=== PATIENT | male | born 1980 | race Caucasian/White ===

== ENCOUNTER 2020-12-14 14:27 | Emergency (ER) | payer BC, SELFPAY ==
[2020-12-14] VITALS (8 sets, daily range): BP systolic 118–175; BP diastolic 70–140; PULSE 71–101; RESP 11–17; TEMP 36.2; O2SAT 94–97; BMI 35.4
--- NOTE | 2020-12-14 15:03 | ED.VIS.GI ---
HPI HPI - GI History of Present Illness Chief Complaint: Foreign Body Narrative Narrative: 40-year-old male presenting with foreign body in his esophagus. He states he thinks that the piece of brronnaet. Is been there for a couple of hours. Patient has had this open to him in the past and had to have an endoscopy to remove it. Patient also states he has a history of eosinophilic esophagitis. He denies other medical problems. He is not having any trouble breathing. He states he has been having to spit his saliva into a cup since then. [facility] Medical History (Updated 12/14/20 @ 17:[address] Mike Campos, DO) Dysphagia Eosinophilic esophagitis Home Medications omeprazole 40 mg capsule,delayed release 40 mg PO BID #60 cap 12/14/20 [Rx Last Taken Unknown] Allergy/AdvReac Type Severity Reaction Status Date / Time cephalexin Allergy Hives Verified 12/14/20 14:30 Social History Smoking Status: Never smoker ROS [facility] ED Constitutional Constitutional ED: Denies chills or fever(s) ENT ENT ED: Reports other Details: Difficulty tolerating secretions ; Denies rhinorrhea or sore throat Cardiovascular Cardiovascular: Denies chest pain or palpitations Respiratory/Chest Respiratory/Chest: Denies cough or dyspnea Gastrointestinal Gastrointestinal: Denies abdominal pain, nausea or vomiting Genitourinary Genitourinary ED: Denies dysuria or hematuria Musculoskeletal Musculoskeletal: Denies arthralgias or myalgias Integumentary Denies Abrasions or rash Neurologic Neurologic: Denies headache(s) or paresthesias EXAM Physical Exam Const Vital Signs: 12/14/20 14:28 12/14/20 16:53 12/14/20 17:13 Temperature 97.1 F L Temperature Source Temporal Pulse Rate 71 75 Pulse Rate [1 (Initial Baseline)] 76 Pulse Rate [2] 100 Respiratory Rate 16 13 Respiratory Rate [1 (Initial Baseline)] 11 L Respiratory Rate [2] 13 Blood Pressure 155/108 H 131/95 H Blood Pressure [1 (Initial Baseline)] 134/96 H Blood Pressure [2] 144/101 H Blood Pressure Mean 123 107 Pulse Ox 97 97 Oxygen Delivery Method Room Air Nasal Cannula Oxygen Delivery Method [1 (Initial Baseline)] Nasal Cannula Oxygen Delivery Method [2] Room Air Oxygen Delivery Method [3] Nasal Cannula Oxygen Flow Rate (L/min) 2 Oxygen Flow Rate (L/min) [1 (Initial Baseline)] 2 Oxygen Flow Rate (L/min) [2] 2 Oxygen Flow Rate (L/min) [3] 2 12/14/20 17:21 12/14/20 17:28 Temperature Temperature Source Pulse Rate 95 101 H Pulse Rate [1 (Initial Baseline)] Pulse Rate [2] Respiratory Rate 13 16 Respiratory Rate [1 (Initial Baseline)] Respiratory Rate [2] Blood Pressure 175/140 H 118/70 Blood Pressure [1 (Initial Baseline)] Blood Pressure [2] Blood Pressure Mean Pulse Ox 94 95 Oxygen Delivery Method Room Air Room Air Oxygen Delivery Method [1 (Initial Baseline)] Oxygen Delivery Method [2] Oxygen Delivery Method [3] Oxygen Flow Rate (L/min) Oxygen Flow Rate (L/min) [1 (Initial Baseline)] Oxygen Flow Rate (L/min) [2] Oxygen Flow Rate (L/min) [3] Positive well nourished General Appearance ED: NAD; Negative for pallor HEENT Reports moist mucous membranes normocephalic and atraumatic Eyes PERRL and EOMs intact bilaterally Resp normal respiratory effort and clear to auscultation bilaterally Cardio regular rate and regular rhythm GI non-tender Palpation: soft Extremity full ROM Neuro Sensorium / Orientation: alert, oriented to person, oriented to place and oriented to time Psych mental status grossly normal and thought process normal Skin General Skin Exam: Negative for pallor Rashes: No rashes noted MDM MDM MDM Narrative Medical decision making narrative: Patient was given glucagon without success. He was still not tolerating his own secretions. I spoke with Dr. Campos regarding this. He will come in for upper endoscopy. Patient was consented for conscious sedation with propofol by myself. Dr. Campos did consent him for the endoscopy. Prior to the procedure a timeout was called. Propofol was used for the conscious sedation totaling [address] Campos did perform endoscopy and at this point the food bolus had passed. Afterwards the patient did vomit which appeared to be due to gagging secondary to the scope. He was sent forward. He came out of sedation and stated he felt fine. His vital signs have been normal since then. He has been monitored. Dr. Campos him a prescription for PPI for home. He will follow up with Dr. Campos outpatient. Patient discharged home in stable condition. Impression: 1. Esophageal foreign body resolved Discharge Plan Triage Chief Complaint: Foreign Body ED Provider: Cesar Hylton Dx/Rx/DC Orders Instructions: ED Esophageal Foreign Body, Resolved Prescriptions: No Action omeprazole 40 mg capsule,delayed release(DR/EC) 40 mg PO BID Qty: 60 RF: 2 Primary Care Provider: Care Physician,No Primary Referrals: Mike Campos DO [STAFF PHYSICIAN] - 3-5 Days Care Physician,No Primary [Primary Care Provider] - Disposition Disposition: Home, Self Care
[2020-12-14] MEDS: Glucagon 1 MG/ML Syringe IV (15:29)
--- NOTE | 2020-12-14 16:59 | EX.PCM.CON.G ---
HPI Consult Data Date of Consult: 12/14/20 HPI Narrative HPI Narrative: ELISABET FLORES, is a 40 M who presents after getting brisket stuck in his throat. He has a history of eosinophilic esophagitis. He denies any history of gastroesophageal reflux disease. He does not take any medicines on daily basis. He is not having any chest pain or shortness of breath. He had 2 other times when he had food stuck in his throat. One was in [place] and the other one was in [place] where they had they are going to remove the food. He is not on any medicines for eosinophilic esophagitis. [facility] Medical History (Updated 12/14/20 @ 17:[address] Mckeon Friend, DO) Dysphagia Eosinophilic esophagitis Allergy/AdvReac Type Severity Reaction Status Date / Time cephalexin Allergy Hives Verified 12/14/20 14:30 Social History Smoking Status: Never smoker ROS Review of Systems ROS Unobtainable: other Constitutional Constitutional: Denies fatigue, fever(s), poor appetite, weight gain or weight loss ENT HEENT: Denies mouth lesions Cardiovascular Cardiovascular: Denies abdominal bloating, abdominal edema or abdominal pain Respiratory/Chest Respiratory/Chest: Denies change in mental status, change in phlegm color, chest congestion or chest tightness Gastrointestinal Gastrointestinal: Reports dysphagia and other; Denies belching, bloating, change in bowel habits, change in stool character, chewing difficulty, coffee ground emesis, constipation, cramping, diarrhea, dyspepsia, early satiety, excessive flatus, fecal incontinence, heartburn, hematemesis, hematochezia, hemorrhoids, loose stools, melena, nausea, odynophagia, rectal bleeding, tenesmus, vomiting or weight changes Genitourinary Genitourinary: Denies abdominal discomfort, burning urination or itching Musculoskeletal Musculoskeletal: Reports as per HPI; Denies muscle weakness or myalgias Integumentary Integumentary: Denies jaundice Neurologic Neurologic: Denies lack of coordination or weakness Psychiatric Psychiatric: Denies confusion, depression, memory loss, mood swings, paranoia or suicidal ideation Endocrine Endocrinology: Denies systems reviewed and no addt'l complaints, except as documented Hematologic/Lymphatic Hematologic/Lymphatic: Denies anemia, easy bleeding, easy bruising or lymphadenopathy Allergic/Immunologic Allergic/Immunologic: Denies systems reviewed and no addt'l complaints, except as documented Physical Exam Const alert General Appearance: cooperative Orientation / Consciousness: oriented to person HEENT hearing grossly normal bilaterally Head and Scalp: normal to inspection Face and Sinus: face symmetric Nose: external nose normal Mouth: oral and palatal mucosa normal Eyes conjunctivae normal General Eye: normal appearance of both eyes Neck full ROM General: normal visual inspection Lymph Lymphatic: no lymphadenopathy noted Chest inspection of chest normal and palpation of chest normal Chest: symmetrical chest wall rise Resp normal respiratory effort Effort and Inspection: able to speak in complete sentences Cardio regular rate GI non-distended Percussion: normal to percussion Rectal Exam: deferred Neuro Speech: speech normal Gait (Neuro): normal gait Assessment & Plan Assessment/Plan (1) Dysphagia: PLAN: Esophageal dysphagia secondary to foreign body . he will undergo upper endoscopy. He was explained alternatives, risk, benefits including not withstanding bleeding, infection, sepsis, perforation, need for emergency or . He will have an ASA of 1.. (2) Eosinophilic esophagitis: PLAN: I will place him on twice a day PPI therapy and budesonide on a daily basis for the next 8 weeks. He may need empiric dilation in the future. We will assess him during the procedure and in 8 weeks. Charges/Coding Visit Charges Inpatient E&M: 64735 Init Hosp L2
[2020-12-14] MEDS: Propofol 200 MG/20 ML Vial IV BOLUS (17:13)
--- NOTE | 2020-12-14 17:33 | OP.CCLET_ITS ---
11/01/2021 No Primary Care Physician Re : Upper GI endoscopy procedure for Dragan Anne Dear Care Physician This procedure was performed on December. My impressions and recommendations are as follows: Impressions : - Esophageal mucosal changes secondary to eosinophilic esophagitis. - Normal stomach. - Normal second portion of the duodenum. - No specimens collected. Recommendations : - Discharge patient to home. - Clear liquid diet today. - Continue present medications. - Use Prilosec (omeprazole) 40 mg PO BID for 8 months. My findings are described in the full procedure note, which is enclosed. If I can be of further assistance, please feel free to contact me at . Sincerely, Mike Campos, 12/14/2020 5:32:59 PM This report has been signed electronically.
--- NOTE | 2020-12-14 17:33 | OP.EGD_ITS ---
Patient Name: Dragan Anne Procedure Date: 12/14/2020 5:02 PM Date of : 1980 Age: 40 Procedure: Upper GI endoscopy Indications: Dysphagia Providers: Mike Campos DO Medicines: Monitored Anesthesia Care Patient Profile: This is a 40 year old male. Refer to note in patient chart for documentation of history and physical. Patient has symptoms of acute dysphagia. The symptoms first began 01,. He is status post EGD for foreign body removal within the past three years. Complications: No immediate complications. Procedure: Pre-Anesthesia Assessment: - Prior to the procedure, a History and Physical was performed, and patient medications and allergies were reviewed. The patient is competent. The risks and benefits of the procedure and the sedation options and risks were discussed with the patient. All questions were answered and informed consent was obtained. Patient identification and proposed procedure were verified by the physician in the pre-procedure area. Mental Status Examination: alert and oriented. Airway Examination: normal oropharyngeal airway and neck mobility. Respiratory Examination: clear to auscultation. CV Examination: normal. Prophylactic Antibiotics: The patient does not require prophylactic antibiotics. Prior Anticoagulants: The patient has taken no previous anticoagulant or antiplatelet agents. ASA Grade Assessment: II - A patient with mild systemic disease. After reviewing the risks and benefits, the patient was deemed in satisfactory condition to undergo the procedure. The anesthesia plan was to use moderate sedation / analgesia (conscious sedation). Immediately prior to administration of medications, the patient was re-assessed for adequacy to receive sedatives. The heart rate, respiratory rate, oxygen saturations, blood pressure, adequacy of pulmonary ventilation, and response to care were monitored throughout the procedure. The physical status of the patient was re-assessed after the procedure. After obtaining informed consent, the endoscope was passed under direct vision. Throughout the procedure, the patient's blood pressure, pulse, and oxygen saturations were monitored continuously. The Endoscope was introduced through the mouth, and advanced to the second part of duodenum. The upper GI endoscopy was accomplished without difficulty. The patient tolerated the procedure well. Moderate Sedation: Moderate (conscious) sedation was administered by the endoscopy nurse and supervised by the endoscopist. The patient's oxygen saturation, heart rate, blood pressure and response to care were monitored. Total physician intraservice time was 15 minutes. Scope In: 5:17:29 PM Scope Out: 5:20:23 PM Total Procedure Duration Time 0 hours 2 minutes 54 seconds Findings: Mucosal changes including ringed esophagus, feline appearance, longitudinal furrows, small-caliber esophagus, circumferential folds and congestion (edema) were found in the entire esophagus. Esophageal findings were graded using the Eosinophilic Esophagitis Endoscopic Reference Score (EoE-EREFS) as: Rings Grade 2 Moderate (distinct rings that do not occlude passage of diagnostic 8-10 mm endoscope), Exudates Grade 1 Mild (scattered white lesions involving less than 10 percent of the esophageal surface area), Furrows Grade 1 Present (vertical lines with or without visible depth) and Stricture none (no stricture found). The entire examined stomach was normal. The second portion of the duodenum was normal. Impression: - Esophageal mucosal changes secondary to eosinophilic esophagitis. - Normal stomach. - Normal second portion of the duodenum. - No specimens collected. Recommendation: - Discharge patient to home. - Clear liquid diet today. - Continue present medications. - Use Prilosec (omeprazole) 40 mg PO BID for 8 months. Procedure Code(s): --- Professional --- 99846, Esophagogastroduodenoscopy, flexible, transoral; diagnostic, including collection of specimen(s) by brushing or washing, when performed (separate procedure) G0500, Moderate sedation services provided by the same physician or other qualified health managed care nurse performing a gastrointestinal endoscopic service that sedation supports, requiring the presence of an independent trained observer to assist in the monitoring of the patient's level of consciousness and physiological status; initial 15 minutes of intra-service time; patient age 5 years or older (additional time may be reported with 05509, as appropriate) CPT copyright 2017 [employer]. All rights reserved. The codes documented in this report are preliminary and upon orthopedic coder review may be revised to meet current compliance requirements. Mike Campos DO 12/14/2020 5:32:59 PM This report has been signed electronically. Number of Addenda: 1 Note Initiated On: 12/14/2020 5:02 PM Addendum Number: 1 Addendum Date: 11/01/2021 4:33:19 PM MAC was used instead of moderate sedation for this patient. Mike Campos DO 11/01/2021 4:33:23 PM This report has been signed electronically.
== END 2020-12-14 18:54 | disposition home or self-care (01) ==
PROVIDERS: Emergency Provider Student in an Organized Health Care Education/Training Program; Referring Provider Internal Medicine Gastroenterology
PROC: 0DJ08ZZ Inspection of Upper Intestinal Tract, Via Natural or Artificial Opening Endoscopic (ICD-10-PCS; CPT 43235; principal; 2020-12-14 14:00)
DX: T18.128A Food in esophagus causing other injury, initial encounter (principal); X58.XXXA Exposure to other specified factors, initial encounter; Y93.9 Activity, unspecified; Y92.9 Unspecified place or not applicable; K20.0 Eosinophilic esophagitis
CPT/HCPCS: 43235; 96361; 96374; 99284; J7030; A4216; J1610

== ENCOUNTER 2021-01-03 08:27 | Day surgery (SDC) | payer BC, SELFPAY ==
[2021-01-03] VITALS (7 sets, daily range): BP systolic 113–131; BP diastolic 79–93; PULSE 71–84; RESP 16; TEMP 35.8–36.8; O2SAT 95–100; BMI 36.1
--- NOTE | 2021-01-03 | IMM_PTH ---
PATIENT: ELISABET FLORES LOC: EN U#:[id number] AGE/SX: 40/M ROOM: RE01/03/[address]: Dr. Mike Campos DO : 1980 BED: DIS: 01/03/2021 SPEC #: [id number] RECD: 01/04/21 15:06 STATUS: [facility] #: [id number] ABIGAIL: 01/03/21 00:[address]: Mike Campos DEPT: IMMUNOHISTOCHEMISTRY RECD BY: Meena Portillo ENTERED: 01/04/21 15:06 SP TYPE: IMMUNO OTHR DR: Kyra Primary Care Phys Tissues: Esophagus, NOS Procedures: P53 (initial) KI-67 (add) PHYSICIAN & INSTITUTION [place] [id number] SPECIMEN INFORMATION: Tissue Source: Esophageal biopsy Clinical Info: Eosinophilic esophagitis Specimen Number: [id number] CPT code: 20440, 33445 METHODOLOGY: Deparaffinized sections of prefer/formalin-fixed tissue or PAP/DQ stained slides are incubated with monoclonal/polyclonal antibodies/oligonucleotide probes. Localization is made via biotin free immunoperoxidase method. Appropriate controls are performed and reacted as expected. Results on target cell population are indicated in the following table: RESULTS: ANTIBODY / CLONE RESULT P53 (DO-7) negative Ki-67 (30-9) positive, low These tests were developed and their performance characteristics determined by [facility]. They may not have been cleared or approved by the U.S. Food and Drug Administration. The FDA has determined that such clearance or approval is not necessary. The above immunohistochemical/dualISH markers are ordered and reviewed by the Pathologist. INTERPRETATION: Esophagus, random biopsy: Goblet cell metaplasia. No evidence of dysplasia. AM:anand 01/05/2021
[2021-01-03] MEDS: Lactated Ringers 1,000 ML 100 ML IV (09:14)
--- NOTE | 2021-01-03 09:30 | EGD_PTH ---
PATIENT: ELISABET FLORES LOC: EN U#:[id number] AGE/SX: 40/M ROOM: RE01/03/[address]: Dr. Mike Campos DO : 1980 BED: DIS: 01/03/2021 SPEC #: [id number] RECD: 01/03/21 12:06 STATUS: [facility] #: [id number] ABIGAIL: 01/03/21 09:[address]: Mike Campos DEPT: SURGICAL PATHOLOGY RECD BY: Krissy Matson ENTERED: 01/03/21 13:40 SP TYPE: EGD BIOPSY OT DR: Kyra Primary Care Phys Tissues: Esophagus, NOS Procedures: Special Stain Group II Surgery Specimen Level IV Alcian Blue/PAS (control) HEADER OPERATION: EGD ([place]) PRE-OP DIAGNOSIS: Eosinophilic esophagitis TISSUE SUBMITTED: Random esophageal biopsies MICROSCOPIC DIAGNOSIS Esophagus, random biopsy: Eosinophilic esophagitis. Gastroesophageal junctional mucosa with mild chronic inflammation. 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 No evidence of dysplasia. AM:anand 01/04/2021 COMMENT Alcian blue/PAS stain with matched control supports the above diagnosis. Immunohistochemistry ([id number]) for P53 and Ki-67 will be performed and results will be reported separately. MICROSCOPIC DESCRIPTION Slides are reviewed. GROSS DESCRIPTION Received in fixative is one container labeled with the patient's name and designated random esophageal biopsy. The specimen consists of multiple irregular fragments of light boggs soft tissue that in aggregate measure 0.8 x 0.5 x 0.1 cm. The specimen is totally submitted in one cassette. / SJ:anand 01/03/21 TC:5 CPT: 26993, 77155
--- NOTE | 2021-01-03 09:48 | HP.PCM_ITS ---
History and Physical Date of Admission: 01/03/21 HPI HPI Details: ELISABET FLORES, is a 40 M who presents after getting brisket stuck in his throat. He has a history of eosinophilic esophagitis. He denies any history of gastroesophageal reflux disease. He does not take any medicines on daily basis. He is not having any chest pain or shortness of breath. He had 2 other times when he had food stuck in his throat. One was in [place] and the other one was in [place] where they had they are going to remove the food. He is not on any medicines for eosinophilic esophagitis. Patient seen in [facility] ED 12/14/20 when a piece of brisket became lodged in his throat. History of eosinophilic esophagitis. EGD performed for removal of fore ign object. Started on omeprazole 40mg BID for eosinophilic esophagitis. Allergy testing of a full panel performed fall and he was allergic to most things. He has had difficulty with dysphagia in the past and one episode of hives. Omperazole continued and is working well. Previously treated with omeprazole and budesonide compound gel. ROS ENT ENT: Positive for difficulty swallowing Gastro GI: Positive for difficulty swallowing Exam Const General: cooperative and comfortable Nutritional Appearance: average body habitus and well nourished [facility] Head: normal to inspection Ears: hearing grossly normal bilaterally Nose: external nose normal Face and sinus: normal facial exam Mouth: oral mucosae normal Throat: posterior oropharynx normal Eyes General: appearance normal, both eyes and all related structures Neck Neck: normal visual inspection Chest Chest palpation & inspection: normal inspection of the chest and normal palpation of entire chest wall Resp Effort & Inspection: normal respiratory effort Auscultation: Bilateral: Clear to Auscultation Cardio Palpation: normal PMI Rate: regular rate Rhythm: regular rhythm GI Inspection: normal to inspection Auscultation: normal bowel sounds Percussion: normal to percussion Palpation: no hepatosplenomegaly Skin General: no rashes or lesions noted Neuro General: patient alert Extrem General: normal to inspection Psych Affect: normal affect Quality Reporting Tobacco Screening ([facility] 138) Smoking Status: Never smoker Assessment and Plan Assessment and Plan (1) Eosinophilic esophagitis: Status: Acute Plan - Dr. Mckeon Friend, DO: We will perform upper endoscopy. I will also put him on PPI twice daily possibly a compound budesonide solution This is an updated H&P from the patient was seen in office.
--- NOTE | 2021-01-03 10:22 | OP.CCLET_ITS ---
11/02/2021 No Primary Care Physician Re : Upper GI endoscopy procedure for Dragan Anne Dear Care Physician This procedure was performed on Sunday, January 03, 2021. My impressions and recommendations are as follows: Impressions : - Esophageal mucosal changes secondary to eosinophilic esophagitis. Biopsied. Dilated. - Normal stomach. - Normal second portion of the duodenum. Recommendations : - Discharge patient to home. - Resume previous diet. - Return to my office in 2 weeks. - Continue present medications. My findings are described in the full procedure note, which is enclosed. If I can be of further assistance, please feel free to contact me at . Sincerely, Mike Campos, 01/03/2021 10:21:44 AM This report has been signed electronically.
--- NOTE | 2021-01-03 10:22 | OP.EGD_ITS ---
Patient Name: Dragan Anne Procedure Date: 01/03/2021 9:49 AM Date of : 1980 Age: 40 Procedure: Upper GI endoscopy Indications: Foreign body in the esophagus Providers: Mike Campos DO Medicines: See the Anesthesia note for documentation of the administered medications Patient Profile: This is a 40 year old male. Refer to note in patient chart for documentation of history and physical. Patient has symptoms of dysphagia with both liquids and solids. He is status post EGD for foreign body removal within the past three months. Complications: No immediate complications. Procedure: Pre-Anesthesia Assessment: - Prior to the procedure, a History and Physical was performed, and patient medications and allergies were reviewed. The patient is competent. The risks and benefits of the procedure and the sedation options and risks were discussed with the patient. All questions were answered and informed consent was obtained. Patient identification and proposed procedure were verified by the physician in the pre-procedure area. Mental Status Examination: alert and oriented. Airway Examination: normal oropharyngeal airway and neck mobility. Respiratory Examination: clear to auscultation. CV Examination: normal. Prophylactic Antibiotics: The patient does not require prophylactic antibiotics. Prior Anticoagulants: The patient has taken no previous anticoagulant or antiplatelet agents. ASA Grade Assessment: II - A patient with mild systemic disease. After reviewing the risks and benefits, the patient was deemed in satisfactory condition to undergo the procedure. The anesthesia plan was to use moderate sedation / analgesia (conscious sedation). Immediately prior to administration of medications, the patient was re-assessed for adequacy to receive sedatives. The heart rate, respiratory rate, oxygen saturations, blood pressure, adequacy of pulmonary ventilation, and response to care were monitored throughout the procedure. The physical status of the patient was re-assessed after the procedure. After obtaining informed consent, the endoscope was passed under direct vision. Throughout the procedure, the patient's blood pressure, pulse, and oxygen saturations were monitored continuously. The Endoscope was introduced through the mouth, and advanced to the second part of duodenum. The upper GI endoscopy was accomplished without difficulty. The patient tolerated the procedure well. Moderate Sedation: Moderate (conscious) sedation was administered by the endoscopy nurse and supervised by the endoscopist. The patient's oxygen saturation, heart rate, blood pressure and response to care were monitored. Total physician intraservice time was 15 minutes. Moderate (conscious) sedation was administered by the endoscopy nurse and supervised by the endoscopist. The patient's oxygen saturation, heart rate, blood pressure and response to care were monitored. Total physician intraservice time was 15 minutes. Scope In: 10:00:12 AM Scope Out: 10:06:23 AM Total Procedure Duration Time 0 hours 6 minutes 11 seconds Findings: Mucosal changes including ringed esophagus, feline appearance, longitudinal furrows, small-caliber esophagus, white plaques, circumferential folds, congestion (edema), esophageal erosions, mucosal friability and stenosis were found in the entire esophagus. Esophageal findings were graded using the Eosinophilic Esophagitis Endoscopic Reference Score (EoE-EREFS) as: Edema Grade 1 Present (decreased clarity or absence of vascular markings), Rings Grade 2 Moderate (distinct rings that do not occlude passage of diagnostic 8-10 mm endoscope), Exudates Grade 2 Severe (scattered white lesions involving 10 percent or greater of the esophageal surface area), Furrows Grade 1 Present (vertical lines with or without visible depth) and Stricture present. Biopsies were taken with a cold forceps for histology. Verification of patient identification for the specimen was done. A guidewire was placed and the scope was withdrawn. Dilation was performed with a Savary dilator with no resistance at 51 Fr. A guidewire was placed and the scope was withdrawn. Dilation was performed with a Savary dilator with no resistance at 60 Fr. The entire examined stomach was normal. The second portion of the duodenum was normal. Impression: - Esophageal mucosal changes secondary to eosinophilic esophagitis. Biopsied. Dilated. - Normal stomach. - Normal second portion of the duodenum. Recommendation: - Discharge patient to home. - Resume previous diet. - Return to my office in 2 weeks. - Continue present medications. Procedure Code(s): --- Professional --- 76186, Esophagogastroduodenoscopy, flexible, transoral; with insertion of guide wire followed by passage of dilator(s) through esophagus over guide wire 04172, 59, Esophagogastroduodenoscopy, flexible, transoral; with biopsy, single or multiple G0500, Moderate sedation services provided by the same physician or other qualified health career technical supervisor performing a gastrointestinal endoscopic service that sedation supports, requiring the presence of an independent trained observer to assist in the monitoring of the patient's level of consciousness and physiological status; initial 15 minutes of intra-service time; patient age 5 years or older (additional time may be reported with 09227, as appropriate) Diagnosis Code(s): --- Professional --- K20.0, Eosinophilic esophagitis T18.108A, Unspecified foreign body in esophagus causing other injury, initial encounter CPT copyright 2017 [employer]. All rights reserved. The codes documented in this report are preliminary and upon telemarketer supervisor review may be revised to meet current compliance requirements. Mike Campos DO 01/03/2021 10:21:44 AM This report has been signed electronically. Number of Addenda: 1 Note Initiated On: 01/03/2021 9:49 AM Addendum Number: 1 Addendum Date: 11/02/2021 6:09:51 AM MAC was used instead of moderate sedation for this patient. Mike Campos DO 11/02/2021 6:09:55 AM This report has been signed electronically.
== END 2021-01-03 11:11 | disposition home or self-care (01) ==
LOC: EN 08:28 → AC 08:30
PROVIDERS: Visit Provider Internal Medicine Gastroenterology
PROC: 0DJ08ZZ Inspection of Upper Intestinal Tract, Via Natural or Artificial Opening Endoscopic (ICD-10-PCS; CPT 43235; principal; 2021-01-03 09:25)
DX: K20.0 Eosinophilic esophagitis (principal); K22.70 Barrett's esophagus without dysplasia; T18.108A Unspecified foreign body in esophagus causing other injury, initial encounter; K22.2 Esophageal obstruction
CPT/HCPCS: 43239; 43248; 88305; 88313; 88341; 88342; J7120; C1769; J2405

== ENCOUNTER 2024-10-12 14:54 | Emergency (ER) | payer BC, SELFPAY ==
[2024-10-12 14:54] VITALS: BP 123/91; PULSE 77; RESP 18; TEMP 36.9; O2SAT 99; BMI 27.0
--- NOTE | 2024-10-12 15:03 | EKG12_ITS ---
Test Reason : PALPS Blood Pressure : */* mmHG Vent. Rate : 117 BPM Atrial Rate : * BPM P-R Int : * ms QRS Dur : 100 ms QT Int : 324 ms P-R-T Axes : * 46 9 degrees QTcB Int : 451 ms Atrial fibrillation with rapid ventricular response Cannot rule out Septal infarct , age undetermined Abnormal ECG Confirmed by Neo Ferris ([id number]), department editor NIECY DIETZ ([id number]) on 10/13/2024 9:39:54 AM Referred By: Confirmed By: Neo Ferris
[2024-10-12 15:25] VITALS: BP 128/71; PULSE 116
--- NOTE | 2024-10-12 15:27 | ED.VIS.CHEST ---
HPI History of Present Illness Chief Complaint: Palpitations Onset/Context/Timing Onset: Today Current Severity: Mild Maximum Severity: Mild Worsened By: Nothing Relieved By: Nothing Narrative Narrative: 44-year-old male no Cee[facility] past medical history of a prior appendectomy. He says he believes he is in A-fib I asked him how he knows he said apple told me. Patient states that his Apple Watch told him he was in A-fib he came in to have it evaluated. He denies any chest pain or significant shortness of breath. He has no cardiac history. When he went through his Apple watch he saw that it showed that he has been in A-fib intermittently for the last several days if not longer. Prior Similar Symptoms: Yes Recent Illness/Hospitalization: No CVD Risk Factors: Negative for Hypertension, Diabetes, Hypercholesterolemia or Family History 1' </=55 PE Risk Factors: Negative for Recent Travel/Surgery, Recent Immobilization, Prior DVT or PE, Cancer or OCP + Smoking + >/=35 TAD Risk Factors: Negative for Marfan's Syndrome or Hypertension [facility] Medical History Barretts esophagus Wears contact lenses History of Clostridium difficile infection Alcohol use Former smoker Seasonal allergies Dysphagia Eosinophilic esophagitis Home Medications ?Medication ?Instructions ?Recorded ?Last Taken ?Type apixaban 5 mg (74 tabs) tablets in See Rx Instructions .Route 10/12/24 Unknown Rx a dose pack (Eliquis DVT-PE Treat .COMPLEX #74 tabs 30D Start) diltiazem HCl 180 mg 180 mg PO DAILY 30 days #30 tabs 10/12/24 Unknown Rx tablet,extended release 24 hr (Cardizem LA) testosterone cypionate 200 mg/mL 60 mg IM .weekly 10/12/24 Unknown History intramuscular syringe Allergy/AdvReac Type Severity Reaction Status Date / Time cephalexin Allergy Hives Verified 10/12/24 14:57 Family History no significant family his Surgical History History of esophagogastroduodenoscopy (EGD) History of abdominal surgery Social History Smoking Status: Former smoker ROS ROS ED ROS Narrative Denies any recent chest pain or exertional dyspnea or exertional chest pain. Constitutional Constitutional ED: Denies chills or fever(s) Eyes Eyes: Reports none ENT ENT ED: Denies ear pain Cardiovascular Cardiovascular: Reports palpitations; Denies chest pain Respiratory/Chest Respiratory/Chest: Denies cough or dyspnea Gastrointestinal Gastrointestinal: Denies abdominal pain Genitourinary Genitourinary ED: Denies dysuria or hematuria Musculoskeletal Musculoskeletal: Denies arthralgias Integumentary Denies abscess Neurologic Neurologic: Denies headache(s) Psychiatric Psychiatric: Denies anxiety Endocrine Endocrinology: Denies cold intolerance Hematologic/Lymphatic Hematologic/Lymphatic: Denies easy bleeding, easy bruising or lymphadenopathy EXAM Physical Exam Narrative Exam Narrative: Well-appearing middle-age male. Vital signs are stable afebrile initial triage pulse is 77. Currently is around 110. None noted. Pulse ox 99% on room air no hypoxia. H EENT exam pupils round react light. Moist with membranes. Neck nontender no JVD. No lymphadenopathy. No thyromegaly. Lungs clear to auscultation bilaterally. Heart irregular irregular rate about 110 no murmur. Chest wall ribs nontender. Abdomen soft nontender. Moving all 4 extremities. Calves nontender no edema no cords. Moving all 4 extremities. Patient is in very good shape. Neurologically is awake alert. Back nontender. Const Vital Signs: 10/12/24 14:54 10/12/24 15:25 10/12/24 15:42 Temperature 98.5 F Temperature Source Oral Pulse Rate 77 116 H Respiratory Rate 18 Respiratory Effort Blood Pressure 123/91 H 128/71 H Blood Pressure Mean 101 90 Pulse Ox 99 Oxygen Delivery Method Room Air Room Air 10/12/24 15:45 10/12/24 15:55 10/12/24 16:42 Temperature Temperature Source Pulse Rate 74 81 Respiratory Rate 21 H Respiratory Effort Normal Non-Labored Blood Pressure 127/79 H 120/75 Blood Pressure Mean 95 90 Pulse Ox 97 Oxygen Delivery Method Room Air 10/12/24 17:00 Temperature Temperature Source Pulse Rate 102 H Respiratory Rate Respiratory Effort Blood Pressure 120/82 H Blood Pressure Mean 94 Pulse Ox Oxygen Delivery Method Positive well nourished and well developed; Negative for cachectic, contractures or unkempt General Appearance ED: well developed and NAD; Negative for unkempt, cachectic, contractures or pallor Nutritional Appearance: Negative for cachectic HEENT Reports moist mucous membranes normocephalic and atraumatic; Negative for trauma Eyes PERRL and EOMs intact bilaterally General Eye ED: Negative for pale conjunctiva or scleral icterus Neck no lymphadenopathy, supple and no JVD General: Negative for tenderness Chest Wall inspection of chest normal and palpation of chest normal Chest: Negative for tenderness Resp normal respiratory effort and clear to auscultation bilaterally Effort and Inspection: Negative for respiratory distress Auscultation: Negative for rales, rhonchi, wheezes or diminished lung sounds Cardio S1 normal heart sound, S2 normal heart sound and no murmurs; Negative for regular rate or regular rhythm Rhythm: abnormal rhythm irregularly irregular Peripheral Pulses: pulses 2+ throughout GI normal to inspection, nondistended, normoactive bowel sounds, soft to palpation, non-tender, non-distended and no masses Back/Spine no CVA tenderness and no thoracic nor lumbar tenderness Extremity normal to inspection General Extremety ED: Negative for edema, pulses abnormal or tenderness General Extremity: Negative for edema or pulses abnormal Neuro oriented x3 and CN's II-XII intact bilaterally Sensorium / Orientation: awake, alert, oriented to person, oriented to place and oriented to time Motor Exam: strength 5/5 throughout Psych mental status grossly normal Appearance: Negative for unkempt Skin no rashes or lesions noted and no wounds General Skin Exam: Negative for jaundice or pallor Rashes: No rashes noted Trauma: Negative for abrasion MDM MDM MDM Narrative Medical decision making narrative: 44-year-old male new onset A-fib with a significant past medical history. Cardiac workup will be treated with IV Cardizem due to his heart rate in the 117 rate. Repeat exam patient is doing well around 5:18 PM. Heart rates 90-100. Dr. Neo Ferris of cardiology is down the emergency department evaluate the patient. The plan to be to discharge him home. Outpatient follow-up. Started on Cardizem CD 180 mg a day. The blood thinner Eliquis and then if he does not spontaneously convert Dr. Ferris strongly considering cardioversion and outpatient follow-up. Patient is comfortable with the plan. History & Record Review Discussion w/independent historian: Patient Additional record(s) reviewed:: Prior inpatient record, Prior outpatient record, Prior ED visit and Prior labs Lab Data Attestation: I reviewed the patient's lab results. Lab results narrative: CBC unremarkable. White count of 10. H&H is 17 and 50. Platelets 275. Electrolytes shows sodium 138. Gap 13. BUN and creatinine of 24 and 0.9. Glucose 101. Troponin less than 6. TSH 2.1. Chest x-ray unremarkable. Labs: Laboratory Results - last 24 hr 10/12/24 15:33 WBC 10.0 RBC 5.50 Hgb 17.5 H Hct 50.9 MCV 92.5 MCH 31.8 MCHC 34.4 RDW Std Deviation 42.8 RDW Coeff of [place] 12.4 Plt Count 275 MPV 9.3 Immature Gran % (Auto) 0.300 Neut % (Auto) 61.4 Lymph % (Auto) 21.7 Buchanan % (Auto) 10.6 H Eos % (Auto) 5.3 H Baso % (Auto) 0.7 Absolute Neuts (auto) 6.1 Absolute Lymphs (auto) 2.16 Nucleated RBC % 0 Sodium 138 Potassium 3.8 Chloride 103 Carbon Dioxide 21.4 Anion Gap 13 BUN 24 H Creatinine 0.90 Estim Creat Clear Calc 104.74 Est GFR (MDRD) Non-Af 108 BUN/Creatinine Ratio 26.4 H Glucose 101 H Calcium 9.0 Troponin T High Sens < 6 TSH 2.130 Radiography Chest X-Ray - ED: 1 View, Read by ED Physician, Read by Radiologist, Normal, Heart, Lungs, Mediastinum, Bony Structures, No Acute Disease and Chronic Changes Diagnostic Testing: Clinical Impression(s) from Imaging Studies Chest X-Ray 10/12/24 15:45 IMPRESSION: No evidence of acute cardiopulmonary pathology. Reading Location: [place] [id number] Chest x-ray, portable, single view interpreted by myself shows no acute abnormality. Normal cardiac silhouette. No mediastinum. Normal lung north. Also read by the radiologist and agrees. Rhythm Strip Rhythm Strip: A-fib Rate: 117 Ectopy: None EKG Initial EKG: Attestation: I personally reviewed and interpreted this EKG as follows: Interpretation: No Acute Injury Pattern and Atrial Fibrillation Comments: A-fib rate 117 no acute signs of [place] or ischemia Discharge Plan Triage Chief Complaint: Palpitations ED Provider: Addy Dwyer Dx/Rx/DC Orders Clinical Impression: New onset atrial fibrillation Instructions: ED AFIB Prescriptions: New diltiazem HCl [Cardizem LA] 180 mg tablet extended release 24 hr 180 mg PO DAILY 30 Days Qty: 30 0RF Eliquis DVT-PE Treat 30D Start 5 mg (74 tabs) tablets,dose pack See Rx Instructions .Route .COMPLEX Qty: 74 0RF Rx Instructions: orally per package directions No Action testosterone cypionate 200 mg/mL syringe 60 mg IM .weekly Patient Comments: take twice a week Primary Care Provider: Care Physician,No Primary Referrals: Neo Ferris MD [Med Staff - Active Staff] - As soon as possible (Call the office tomorrow morning get appointment to be seen soon as possible.) Care Physician,No Primary [Primary Care Provider] - Activity Restrictions/Additional Instructions: You have A-fib which is an irregular heartbeat. I discussed with the ring stamper Dr. Neo Ferris who came down in the emergency department to see you. Call his office tomorrow morning to be seen as soon as possible. Start the blood thinner Eliquis. You will be on that to thin out your blood and then they will most likely cardiovert you or convert you to a regular heart rate unless you convert on your own. Start the medication Cardizem 1 pill a day to control your heart rate. Return to the emergency department for any problems. Since you are being started on a blood thinner medication if you would hit your head of any significance you need to return to be evaluated. Be careful not to cut yourself because obviously you will bleed due to the blood thinning medication. Print Language: Tongan Disposition Disposition: Home, Self Care
--- NOTE | 2024-10-12 15:45 | RAD_ITS ---
PROCEDURE: CHEST 1 VIEW (PORTABLE) 10/12/2024 REASON FOR EXAM: CHEST PAIN TECHNIQUE: Frontal view of the chest. COMPARISON: None. FINDINGS: The cardiac and mediastinal contours are normal. The lungs are clear. RAD/Chest 1 View (Portable) IMPRESSION: No evidence of acute cardiopulmonary pathology. Reading Location: [place] [id number]
[2024-10-12 15:46] LABS: Hematocrit 50.9 % (40-54); Hemoglobin 17.5 g/dL (13.0-16.5); Immature Granulocytes Count 0.030 X10^3/uL (0.0-0.0); Mean Corp Hgb Conc 34.4 g/dL (32-36); Mean Corpuscular Volume 92.5 fL (80-94); Mean Platelet Vol. 9.3 fl (6.2-12.0); NRBC Flagged by Analyzer 0 % (0-5); Platelet Count 275 K/mm3 (150-450); RBC Distribution Width CV 12.4 % (11.6-14.6); RBC Distribution Width SD 42.8 fl (35.1-43.9); Red Blood Count 5.50 M/mm3 (4.6-6.2); White Blood Count 10.0 K/mm3 (4.4-11.0)
[2024-10-12 15:55] VITALS: BP 127/79; PULSE 74
[2024-10-12 16:17] LABS: Anion Gap 13 (5-15); BUN 24 mg/dL (4-19); BUN/Creat Ratio 26.4 RATIO (10-20); Calcium,Total 9.0 mg/dL (7.6-11.0); Carbon Dioxide 21.4 mmol/L (21.0-32.0); Chloride 103 mmol/L (98-108); Estimated Creatinine Clearance 104.74 ml/min (50-250); Glucose 101 mg/dL (70-99); Potassium 3.8 mmol/L (3.3-5.1); Troponin T High Sensitivity < 6 ng/L (<=22)
[2024-10-12 16:42] VITALS: BP 120/75; PULSE 81; RESP 21; O2SAT 97
[2024-10-12 17:00] VITALS: BP 120/82; PULSE 102
--- NOTE | 2024-10-12 17:25 | PCM.CONS.C ---
Assessment & Plan Assessment/Plan (1) New onset atrial fibrillation: PLAN: Patient is iWatch identified atrial fibrillation and he reported to the emergency department approximately 18 hours after initial identification was made. This now been approximately 24 hours. The patient's heart rate remains in the 90-100 bpm range in atrial fibrillation on the monitor. The patient has a history of having problems and remaining hydrated but he has been utilizing propel and water routinely. 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 He is originally from [place]. The patient does have significant family history of coronary disease and a sister with structural heart disease. I would recommend the patient be placed on Cardizem CD 180 mg daily. If his heart rate remains above 100 he should be able to take it twice a day. The patient is to call our office to schedule an appointment for follow-up in the next 7 to 10 days. He will need an ECG at that point in time. We did place the patient on Eliquis 5 mg twice daily given the fact he has been in atrial fibrillation for 24 hours but his [id number] score is either 0 or 1. Once converted back to sinus rhythm would stop the Eliquis and maintain him on an aspirin a day. The patient needs an echocardiogram and will probably need an ischemic workup as well. PLAN: Plan 1. Cardizem CD 180 mg daily can increase to twice daily if heart rate is not less than 100. 2. Eliquis 5 mg twice daily. 3. Will obtain ECG in 7 to 10 days in the [facility] office. 4. Will have the patient follow-up with advanced practitioner in the [facility] office in 7 to 10 days if remains in atrial fibrillation with set up for direct-current cardioversion in 4 weeks. HPI Consult Data Date of Consult: 10/12/24 HPI Narrative Reason for Consultation: New onset atrial fibrillation HPI Narrative: ELISABET FLORES, is a 44 M who presents to the emergency department after his iWatch notified him that he was in atrial fibrillation. He did notice some fluttering around suppertime yesterday. But did not check his watch although he does remember it buzzing him. He presented to the emergency department today where an ECG showed atrial fibrillation with a ventricular rate of 117 bpm. There were no significant ST or T wave changes. The patient denies any personal history of hypertension he does not smoke, although he did remotely, he has been purposefully losing weight he is down 80 pounds over the last 2 years due to diet and exercise. He denies any syncope or near syncope. He really had no idea he was in atrial fibrillation until his watch notified him. The patient does have a strong family history of coronary disease and a history of structural heart disease a sister had some type of hole in her heart that was either repaired or closed spontaneously he could not remember. The patient works out 4 to 5 days a week he has had no drop-off in his exercise tolerance. He denies any chest tightness or squeezing denies any significant dyspnea on exertion or shortness of breath. He has really been very healthy. The patient received IV diltiazem in the emergency department where his heart rate dropped from 117 down into the 90 bpm range. He did not convert to sinus rhythm. [facility] Medical History Barretts esophagus Wears contact lenses History of Clostridium difficile infection Alcohol use Former smoker Seasonal allergies Dysphagia Eosinophilic esophagitis Home Medications ?Medication ?Instructions ?Recorded ?Last Taken ?Type apixaban 5 mg (74 tabs) tablets in See Rx Instructions .Route 10/12/24 Unknown Rx a dose pack (Eliquis DVT-PE Treat .COMPLEX #74 tabs 30D Start) diltiazem HCl 180 mg 180 mg PO DAILY 30 days #30 tabs 10/12/24 Unknown Rx tablet,extended release 24 hr (Cardizem LA) testosterone cypionate 200 mg/mL 60 mg IM .weekly 10/12/24 Unknown History intramuscular syringe Allergy/AdvReac Type Severity Reaction Status Date / Time cephalexin Allergy Hives Verified 10/12/24 14:57 Family History no significant family his Surgical History History of esophagogastroduodenoscopy (EGD) History of abdominal surgery Social History Smoking Status: Former smoker ROS Constitutional Constitutional: Reports as per HPI Eyes Eyes: Reports systems reviewed and no addt'l complaints, except as documented ENT HEENT: Reports systems reviewed and no addt'l complaints, except as documented Cardiovascular Cardiovascular: Reports as per HPI Respiratory/Chest Respiratory/Chest: Reports as per HPI Gastrointestinal Gastrointestinal: Reports systems reviewed and no addt'l complaints, except as documented Genitourinary Genitourinary: Reports systems reviewed and no addt'l complaints, except as documented Musculoskeletal Musculoskeletal: Reports systems reviewed and no addt'l complaints, except as documented Integumentary Integumentary: Reports systems reviewed and no addt'l complaints, except as documented Neurologic Neurologic: Reports systems reviewed and no addt'l complaints, except as documented Psychiatric Psychiatric: Reports systems reviewed and no addt'l complaints, except as documented Endocrine Endocrinology: Reports systems reviewed and no addt'l complaints, except as documented Hematologic/Lymphatic Hematologic/Lymphatic: Reports systems reviewed and no addt'l complaints, except as documented Allergic/Immunologic Allergic/Immunologic: Reports systems reviewed and no addt'l complaints, except as documented Physical Exam Const alert and oriented x3 HEENT normocephalic Eyes EOMs intact bilaterally Neck no JVD and no carotid bruits Chest inspection of chest normal Resp normal respiratory effort and clear to auscultation bilaterally Cardio Rate: regular rate Rhythm: abnormal rhythm irregularly irregular Heart Sounds: S1 normal and S2 normal; Negative for click, gallop or murmur Extremity no pedal edema Neuro Neuro Narrative: Alert and oriented x 3 Psych mental status grossly normal Risk Stratification Risk Stratification Applicable: No Charges/Coding Visit Charges Inpatient E&M: 81478 Init Hosp L2 Objective Data Vital Signs: Vital Signs Temp Pulse Resp BP Pulse Ox O2 Del Method 98.5 F 102 H 21 H 120/82 H 97 Room Air 10/12/24 14:54 10/12/24 17:00 10/12/24 16:42 10/12/24 17:00 10/12/24 16:42 10/12/24 16:42 Oxygen Delivery Method Room Air Weight: 183 lb Body Mass Index (BMI) 27.0 Lab / Micro Data Attestation: I reviewed the patient's lab results. 10/12/24 15:33 10/12/24 15:33 Labs: Laboratory Results - last 24 hr 10/12/24 15:33: WBC 10.0, RBC 5.50, Hgb 17.5 H, Hct 50.9, MCV 92.5, MCH 31.8, MCHC 34.4, RDW Std Deviation 42.8, RDW Coeff of [place] 12.4, Plt Count 275, MPV 9.3, Immature Gran % (Auto) 0.300, Neut % (Auto) 61.4, Lymph % (Auto) 21.7, [place] % (Auto) 10.6 H, Eos % (Auto) 5.3 H, Baso % (Auto) 0.7, Absolute Neuts (auto) 6.1, Absolute Lymphs (auto) 2.16, Nucleated RBC % 0, Sodium 138, Potassium 3.8, Chloride 103, Carbon Dioxide 21.4, Anion Gap 13, BUN 24 H, Creatinine 0.90, Estim Creat Clear Calc 104.74, Est GFR (MDRD) Non-Af 108, BUN/Creatinine Ratio 26.4 H, Glucose 101 H, Calcium 9.0, Troponin T High Sens < 6, TSH 2.130 Rhythm Strip Rhythm Strip: A-fib Rate: 117 Ectopy: None Cardiology Labs/Tests 10/12/24 15:33: WBC 10.0, RBC 5.50, Hgb 17.5 H, Hct 50.9, MCV 92.5, MCH 31.8, MCHC 34.4, Plt Count 275, MPV 9.3, Immature Gran % (Auto) 0.300, Neut % (Auto) 61.4, Lymph % (Auto) 21.7, [place] % (Auto) 10.6 H, Eos % (Auto) 5.3 H, Baso % (Auto) 0.7, Absolute Neuts (auto) 6.1, Nucleated RBC % 0, Sodium 138, Potassium 3.8, Chloride 103, Carbon Dioxide 21.4, Anion Gap 13, BUN 24 H, Creatinine 0.90, Est GFR (MDRD) Non-Af 108, BUN/Creatinine Ratio 26.4 H, Glucose 101 H, Calcium 9.0 Rhythm: EKG: ECHO: Stress Test: Cardiac Cath: PCI: CT Surgery: Holter monitor: EPS: PPM: CXR: Chest CT Scan: Radiography Diagnostic Testing: Radiology Impression Chest X-Ray 10/12/24 15:45 IMPRESSION: No evidence of acute cardiopulmonary pathology. Reading Location: [place] [id number]
[2024-10-12 17:31] VITALS: BP 106/65; PULSE 107; RESP 20; TEMP 36.9; O2SAT 98
[2024-10-12 17:52] LABS: Troponin T High Sens 2 HR < 6 ng/L (<=22)
== END 2024-10-12 17:35 | disposition home or self-care (01) ==
PROVIDERS: Emergency Provider Emergency Medicine; Visit Provider Emergency Medicine
DX: R00.2 Palpitations (principal); I48.91 Unspecified atrial fibrillation; Z87.891 Personal history of nicotine dependence; Z90.49 Acquired absence of other specified parts of digestive tract
CPT/HCPCS: 71045; 80048; 84443; 84484; 85025; 93005; 96374; 99283; A4216

== ENCOUNTER → 2024-10-15 | Outpatient (CLI) | payer BC, SELFPAY ==
--- NOTE | 2024-10-15 13:40 | ECHOD_ITS ---
Reason For Study Reason For Study: NA PT in ED w/new ATRIAL FIBRILLATION. Procedure This was a 2D Doppler, Color Flow transthoracic echocardiogram. Exam performed in department. Left Ventricle Normal LV size. The left ventricular ejection fraction is 65 %. Stage 1 diastolic dysfunction. No regional wall motion abnormalities noted. Right Ventricle Normal RV size. Normal systolic function. Atria Normal left atrium. Normal right atrium. Mitral Valve Normal mitral valve. Tricuspid Valve Normal tricuspid valve. Aortic Valve Trisinus/trileaflet aortic valve. Pulmonic Valve Normal pulmonic valve. Great Vessels Normal aortic root. The pulmonary artery is normal size. Normal inferior vena cava. Pericardium/Pleural No pericardial effusion. MMode/2D Measurements & Calculations LVIDd: 5.5 cm IVSd: 0.96 cm Ao root diam: 3.6 cm LVIDs: 3.5 cm LVPWd: 0.96 cm RVDd: 3.1 cm FS: 35.5 % LAV(MOD-bp): 56.1 ml LVAd ap4: 31.8 cm2 LVAd ap2: 35.4 cm2 LAV(MOD-bp) Indexed: 28.4 ml/m2 LVLd ap4: 9.0 cm LVLd ap2: 9.0 cm LAV(MOD-sp2): 60.8 ml EDV(MOD-sp4): 98.0 ml EDV(MOD-sp2): 124.5 ml LAV(MOD-sp4): 38.3 ml EDV(sp4-el): 95.7 ml EDV(sp2-el): 118.8 ml LVAs ap4: 16.9 cm2 LVAs ap2: 19.2 cm2 LVLs ap4: 7.0 cm LVLs ap2: 7.7 cm ESV(MOD-sp4): 37.5 ml ESV(MOD-sp2): 43.1 ml ESV(sp4-el): 34.6 ml ESV(sp2-el): 40.2 ml EF(MOD-sp4): 61.7 % EF(MOD-sp2): 65.4 % EF(sp4-el): 63.8 % SV(MOD-sp4): 60.5 ml SV(MOD-sp2): 81.4 ml SV(sp4-el): 61.0 ml SI(MOD-sp4): 30.6 ml/m2 SI(MOD-sp2): 41.2 ml/m2 LA A4 area: 12.9 cm2 LA dimension(2D): 3.9 cm RA A4 area: 12.6 cm2 TAPSE: 3.0 cm Time Measurements MV dec time: 0.20 sec Doppler Measurements & Calculations MV E max rigo: 67.0 cm/sec Lat Peak E' Rigo: 10.1 cm/sec Med Peak E' Rigo: 10.2 cm/sec MV A max rigo: 77.9 cm/sec E/E' lat: 6.7 E/E' med: 6.6 MV E/A: 0.86 MV V2 max: 78.1 cm/sec MV P1/2t max rigo: 75.9 cm/sec Ao V2 max: 149.5 cm/sec MV max P.4 mmHg MV P1/2t: 65.8 msec Ao max P.9 mmHg MV V2 mean: 51.4 cm/sec Ao V2 mean: 96.2 cm/sec MV mean P.2 mmHg MV dec slope: 337.8 cm/sec2 Ao mean P.2 mmHg MV V2 VTI: 22.5 cm MVA(P1/2t): 3.3 cm2 Ao V2 VTI: 25.0 cm AV (velocity ratio): 0.75 LV V1 max: 112.5 cm/sec PA V2 max: 133.3 cm/sec LV V1 max P.1 mmHg PA V2 mean: 93.5 cm/sec PI dec slope: 295.1 cm/sec2 LV V1 mean P.4 mmHg PA V2 VTI: 24.1 cm LV V1 mean: 74.4 cm/sec LV V1 VTI: 18.6 cm ECHO/Echo Complete Interpretation Summary Normal LV size. The left ventricular ejection fraction is 65 %. Stage 1 diastolic dysfunction. Structurally normal valves. Ordering Physician: Neo Ferris Referring Physician: MAYANK PCP Performed By: Brii Andres RDCS, RVT
== END | disposition home or self-care (01) ==
PROVIDERS: Referring Provider Internal Medicine Cardiovascular Disease; Visit Provider Internal Medicine Cardiovascular Disease
DX: I48.91 Unspecified atrial fibrillation (principal)
CPT/HCPCS: 93306